=== PATIENT | female | born 1990 | race Caucasian/White ===

== ENCOUNTER 2018-10-13 12:23 | Emergency (ER) | payer SELFPAY ==
[~2018-10-13] VITALS: Ht 162.6 cm; Wt 62.6 kg
[2018-10-13 12:36] VITALS: BP 97/71; Ht 162.6 cm; Wt 62.6 kg
== END 2018-10-13 13:09 | disposition home or self-care (01) ==
LOC: ED 12:23
DX: L23.9 Allergic contact dermatitis, unspecified cause (principal)